=== PATIENT | male | born 1955 | race Caucasian/White ===

== ENCOUNTER 2018-02-06 10:35 | Inpatient (IN) | payer OTHER ==
[~2018-02-06] VITALS: Ht 172.7 cm; Wt 118.4 kg
--- NOTE | 2018-02-06 11:32 | ED GENERAL ADULT ---
History of Present Illness General Chief Complaint: Upper Respiratory Sx/Fever Stated Complaint: URI/BRONCHITIS,SENT BY DR CRAMER Source: patient Exam Limitations: no limitations Allergies Coded Allergies: No Known Allergies (02/06/18) Reconcile Medications Albuterol Sulfate (Proair Hfa) (Unknown Strength) HFA.AER.AD (Unknown Dose) PRN WHEEZING (Reported) Amitriptyline HCl 100 MG TABLET 100 MG PO DAILY CARDIAC (Reported) Aspirin (Aspirin*) 81 MG TAB.CHEW 1 TAB PO DAILY HEART HEALTH (Reported) Atenolol 25 MG TABLET 1 TAB PO DAILY HTN (Reported) Enalapril Maleate 20 MG TABLET 20 MG PO DAILY HTN (Reported) Furosemide 80 MG TABLET 80 MG PO BID FLUID RETENTION (Reported) Nifedipine (Nifedipine ER) 60 MG TAB.ER.24 60 MG PO DAILY HTN (Reported) Olanzapine 10 MG TABLET 10 MG PO QPM PYSCOTIC DISORDER (Reported) Pantoprazole Sodium 20 MG TABLET.DR 20 MG PO DAILY GERD (Reported) Potassium Chloride 20 MEQ TAB.ER.PRT 20 MG PO DAILY REPLACEMENT (Reported) Simvastatin (Simvastatin*) 20 MG TABLET 20 MG PO DAILY CHOL (Reported) Triage Note: 62 Y/O MALE SENT BY DR CRAMER FOR EVAL OF URI SYMPTOMS X APPROX 10 DAYS. PT WENT TO WALK IN CLINIC AND WAS DIAGNOSED WITH BRONCHITIS, FINISHED COURSE OF STEROIDS AND ANTIBIOTICS FRIDAY AND "FELT OK". STATES HE BEGAN TO COUGH AGAIN FRIDAY AND NOW CONTINUES TO HAVE CONGESTION AND COUGH - NON PRODUCTIVE AT TIME; PRODUCTIVE WITH YELLOW PHLEGM AT OTHER TIMES. DENIES FEVERS. DENIES CHANGES IN APPETITE. FLU SWAB SENT. Triage Nurses Notes Reviewed? yes Onset: Gradual Duration: week(s): Timing: constant HPI: 62 y/o male with h/o COPD and prior UT presenting with cough and SOB x2 weeks. Pt was treated for bronchitis with course of antibiotics and prednisone. Symptoms were improving while on the medications, but then began to worsen again once he finished. Cough is sometime non-productive Denies fevers, CP, URI symptoms. was recently sick with similar smyptoms, but has since gotten better. Denies current smoking. (Joe HAHN,Kaley) Vital Signs & Intake/Output Vital Signs & Intake/Output Vital Signs Date Time Temp Pulse Resp B/P B/P Pulse O2 O2 Flow FiO2 Mean Ox Delivery Rate 02/08 1114 140/82 02/08 1113 140/82 02/08 1113 140/82 02/08 0751 95 Room Air 02/08 0701 97.6 77 20 140/82 92 02/07 2242 98.4 89 20 122/62 91 Room Air 02/07 2058 Room Air 02/07 2043 93 Room Air Room Air 02/07 1457 97.6 94 20 126/72 93 Room Air 02/07 1349 Room Air Room Air ED Intake and Output 02/08 0000 02/07 1200 Intake Total 600 Output Total Balance 600 Intake, Oral 600 Patient 263 lb Weight Weight Bed scale Measurement Method (Donna OLSON,Anam Silveira) Past History Travel History Traveled to [place] past 21 day No Medical History Any Pertinent Medical History? see below for history Neurological: NONE EENT: NONE Cardiovascular: myocardial infarction Respiratory: COPD Gastrointestinal: NONE Hepatic: NONE Renal: NONE Musculoskeletal: NONE Psychiatric: NONE Endocrine: NONE Blood Disorders: NONE Cancer(s): NONE TRANSPORT TANK TECHNICIAN/Reproductive: NONE Surgical History Surgical History: non-contributory Psychosocial History What is your primary language Kazakh Tobacco Use: Quit >30 days ago Family History Hx Contributory? No (Kaley Lopez) Review of Systems Review of Systems Constitutional: Reports: no symptoms. EENTM: Reports: no symptoms. Respiratory: Reports: cough, short of breath. Denies: wheezing. Cardiovascular: Reports: no symptoms. GI: Reports: no symptoms. Genitourinary: Reports: no symptoms. Musculoskeletal: Reports: no symptoms. Skin: Reports: no symptoms. Neurological/Psychological: Reports: no symptoms. Hematologic/Endocrine: Reports: no symptoms. Immunologic/Allergic: Reports: no symptoms. (Kaley Lopez) Physical Exam Physical Exam General Appearance: well developed/nourished, no apparent distress, alert, awake , comfortable Head: atraumatic, normal appearance Eyes: Bilateral: normal appearance. Ears, Nose, Throat: normal ENT inspection Neck: supple Respiratory: wheezing (bilateral end expiratory) Cardiovascular: regular rate/rhythm, normal peripheral pulses Gastrointestinal: soft, non-tender Back: normal inspection Extremities: normal inspection Neurologic/Psych: awake, alert, oriented x 3 Skin: intact, normal color, warm/dry Core Measures ACS in differential dx? No CVA/TIA Diagnosis: No Sepsis Present: No Sepsis Focused Exam Completed? No (Kaley Lopez) Progress Differential Diagnoses I considered the following diagnoses in my evaluation of the patient: [COPD exacerbation versus bronchitis versus pneumonia, low concern for ACS] Initial ED EKG: rhythm (sinus), rate (78), trace ST depression in lateral leads are unchanged from prior EKG (Kaley Lopez) Plan of Care: Orders Procedure Date/time Status RT: Evaluation 02/07 1347 Active THERAPIST ORDERS 02/07 UNK Complete Current Medications Sig/Divya Start time Last Medication Dose Stop Time Status Admin Senna/Docusate Sodium 2 TAB DAILY PRN 02/08 1030 AC (Senokot S) Benzonatate 100 MG TID 02/08 1021 AC (Tessalon Capsule) Prednisone 60 MG DAILY 02/08 1000 AC 02/08 1114 Guaifenesin 10 ML Q4-6 PRN PRN 02/08 0200 AC 02/08 (Robitussin) 0204 Atorvastatin Calcium 10 MG 1700 02/07 1700 AC 02/07 (Lipitor) 1625 Albuterol Sulfate 3 ML EVERY 4 HRS/AWAKE 02/07 1600 AC 02/08 (Proventil) 1132 Aspirin 81 MG DAILY 02/07 1000 AC 02/08 (Aspirin) 1114 Atenolol 25 MG DAILY 02/07 1000 AC 02/08 (Tenormin) 1113 Lisinopril 20 MG DAILY 02/07 1000 AC 02/08 (Prinivil) 1113 Nifedipine 60 MG DAILY 02/07 1000 AC 02/08 (Procardia XL) 1114 Omeprazole 20 MG DAILY AC 02/07 0700 AC 02/08 (Prilosec) 0648 Amitriptyline HCl 100 MG AT BEDTIME 02/06 2200 AC 02/07 (Elavil 50 MG Tablet) 2044 Heparin Sodium 5,000 UNIT Q8 02/06 2200 AC 02/08 (Porcine) 0648 Olanzapine 10 MG QPM 02/06 2200 AC 02/07 (Zyprexa) 2044 Acetaminophen 650 MG Q6P PRN 02/06 2130 AC (Tylenol) Albuterol Sulfate 2 PUF Q4 PRN 02/06 2130 AC (Ventolin) EKG shows sinus rhythm with trace ST depressions in the lateral leads which are unchanged from prior EKG, troponin negative, and pt with no CP. CXR shows lung hyperinflation, with no signs of acute infection. Pt's sats fluctuate from 88%-93% on RA after 3 nebs and 125mg solumedrol. Sat's stable in mid 90's while on 2L NC. Given new oxygen requirement will admit for COPD exacerbation. Discussed with Dr. Cramer. (Kaley Lopez) (Donna OLSON,Anam Silveira) Departure Departure Disposition: STILL A PATIENT Condition: Stable Clinical Impression Primary Impression: COPD exacerbation Referrals: Sol OLSON,Johnson Bond (PCP/Family) Departure Forms: Customer Survey General Discharge Information (Kaley Lopez) PA/RECOVERY MANAGER Co-Sign Statement Statement: ED Attending supervision documentation- [X] I saw and evaluated the patient. I have also reviewed all the pertinent lab results and diagnostic results. I agree with the findings and the plan of care as documented in the PA's/RECOVERY MANAGER's documentation. [] I have reviewed the ED Record and agree with the PA's/RECOVERY MANAGER's documentation. [] Additions or exceptions (if any) to the PAs/RECOVERY MANAGER's note and plan are summarized below: [] (Anam Caruso DO) Critical Care Note Critical Care Note Critical Care Time: non-applicable (Kaley Lopez) ED Attending Observation Initial Observation Note: I have seen and personally examined JOHNSON LOVE on 02/08/18 at 0934. I agree with the current emergency department documentation. The disposition (admission or discharge) is uncertain at this time, he needs a period of observation for the following reason(s): The ED Nurse caring for this patient has been personally informed as to what the patient is being observed for. (Kaley Lopez)
--- NOTE | 2018-02-06 12:39 | RADIOLOGY REPORT ---
EXAMINATION: CHEST 2 VIEWS CLINICAL INFORMATION: Cough. Sputum production. COMPARISON: 11/21/2017. TECHNIQUE: PA and lateral views of the chest were obtained. FINDINGS: The cardiac silhouette is not enlarged. The mediastinal and hilar contours are unremarkable. There are neither pleural effusions nor pneumothoraces. There are no consolidations. There is mild scarring at the left lateral lung base, unchanged. The lungs are hyperinflated. The osseous structures are unremarkable. IMPRESSION: No evidence for acute disease. Lung hyperinflation.
[2018-02-06] MEDS ORDERED: PROAIR HFA8.5 GM (13:11)
[2018-02-06] MEDS ORDERED: ENALAPRIL MALEA20 M1 PO (13:12)
[2018-02-06] MEDS ORDERED: ATENOLOL25 M1 PO (13:12)
[2018-02-06 13:13] LABS: ABSOLUTE BASOPHIL COUNT 0.1 /CUMM (0.0-0.2); ABSOLUTE EOSINOPHIL COUNT 0.1 /CUMM (0.0-0.7); ABSOLUTE GRANULOCYTE CT 6.6 /CUMM (1.4-6.5); ABSOLUTE MONOCYTE COUNT 0.7 /CUMM (0.10-0.60); BASOPHIL % 0.6 % (0.0-2.0); EOSINOPHIL % 0.6 % (0-5); GRANULOCYTE % 63.2 % (42.2-75.2); HEMATOCRIT 44.4 % (42-52); MEAN CORPUSCULAR HGB 33.1 PG (27.0-31.0); MEAN CORPUSCULAR HGB CONC 33.4 G/DL (33.0-37.0); PLATELET COUNT 308 /CUMM (130-400); RBC DISTRIBUTION WIDTH 13.3 % (11.5-14.5); RED BLOOD CELL CT 4.49 /CUMM (4.70-6.10); WHITE BLOOD CELL COUNT 10.4 /CUMM (4.8-10.8)
[2018-02-06] MEDS ORDERED: NIFEDIPINE ER60 M2 PO (13:13)
[2018-02-06] MEDS ORDERED: PANTOPRAZOLE SO20 M1 PO (13:14)
[2018-02-06] MEDS ORDERED: FUROSEMIDE80 M1 PO (13:14)
[2018-02-06] MEDS ORDERED: SIMVASTATIN20 M2 PO (13:15)
[2018-02-06] MEDS ORDERED: AMITRIPTYLINE100 M2 PO (13:15)
[2018-02-06] MEDS ORDERED: OLANZAPINE10 M1 PO (13:16)
[2018-02-06] MEDS ORDERED: POTASSIUM CHLO20 ME2 PO (13:16)
[2018-02-06] MEDS ORDERED: ENALAPRIL MALEA10 M1 PO (19:09)
[2018-02-06] MEDS ORDERED: ASPIRIN81 M4 PO (19:11)
--- NOTE | 2018-02-06 20:57 | History & Physical ---
Mali OLSON,[facility] 02/06/182055: General Information and HPI MD Statement: I have seen and personally examined JOHNSON LOVE and documented this H&P. The patient is a 62 year old M who presented with a patient stated chief complaint of [cough for 2 weeks]. Source of Information: patient, family, old records Exam Limitations: no limitations History of Present Illness: Mr. Love a 62 year old male with past medical history of COPD not on home oxygen, [place] 2005 without any stent placement, depression, anxiety who presented to ED with chief complaint of cough for 2 weeks and cough induced syncope. Patient reported cough that started 2 weeks ago didn't respond to outpatient management with Z-Nikunj and prednisone, cough is productive of yellow sputum associated with nasal congestion, chills and maybe low-grade fever. Patient has been having shortness of breath for the last 2-3 months that progressively worsened but didn't require any oxygen so far. Reported having pulmonary test that was ordered by Dr. Adames at somepoint 2-4 weeks ago. He also had Lasix increased to 80 mg twice a day for lower extremity swelling for 2 weeks with minimal improvement. Patient denied any chest pain, palpitation, dizziness, blurry vision, diaphoresis. Yesterday he had a cough spell and lost his balance but didn't loss consciousness, denied any convulsions, urine or stool incontinence. He was alert oriented the whole time and called his for help , able to stood up and articulate appropriately. Patient didn't have any previous hospitalization or surgical operation except appendectomy 2002. Has history of [place] 2005 however didn't have any cardiac cath at that time or stress test. Allergies/Medications Allergies: Coded Allergies: No Known Allergies (02/06/18) Home Med list Albuterol Sulfate (Proair Hfa) (Unknown Strength) HFA.AER.AD (Unknown Dose) PRN WHEEZING (Reported) Amitriptyline HCl 100 MG TABLET 100 MG PO DAILY CARDIAC (Reported) Aspirin (Aspirin*) 81 MG TAB.CHEW 1 TAB PO DAILY HEART HEALTH (Reported) Atenolol 25 MG TABLET 1 TAB PO DAILY HTN (Reported) Enalapril Maleate 20 MG TABLET 20 MG PO DAILY HTN (Reported) Furosemide 80 MG TABLET 80 MG PO BID FLUID RETENTION (Reported) Nifedipine (Nifedipine ER) 60 MG TAB.ER.24 60 MG PO DAILY HTN (Reported) Olanzapine 10 MG TABLET 10 MG PO QPM PYSCOTIC DISORDER (Reported) Pantoprazole Sodium 20 MG TABLET.DR 20 MG PO DAILY GERD (Reported) Potassium Chloride 20 MEQ TAB.ER.PRT 20 MG PO DAILY REPLACEMENT (Reported) Simvastatin (Simvastatin*) 20 MG TABLET 20 MG PO DAILY CHOL (Reported) Past History Travel History Traveled to [place] past 21 day No Medical History Neurological: NONE EENT: NONE Cardiovascular: myocardial infarction Respiratory: COPD Gastrointestinal: NONE Hepatic: NONE Renal: NONE Musculoskeletal: NONE Psychiatric: NONE Endocrine: NONE Blood Disorders: NONE Cancer(s): NONE POSTPARTUM RN/Reproductive: NONE Surgical History Surgical History: non-contributory Review of Systems Review of Systems Constitutional: Reports: see HPI, chills, fever. Denies: malaise, weakness. EENTM: Denies: blurred vision, double vision, nasal pain, throat pain. Cardiovascular: Reports: peripheral edema. Denies: chest pain, orthopena, palpitations. Respiratory: Reports: cough, short of breath, sputum production. Denies: hemoptysis, orthopnea, wheezing. GI: Denies: abdominal pain, constipation, diarrhea, nausea, vomiting. Genitourinary: Denies: dysuria, hematuria. Musculoskeletal: Denies: back pain, joint pain, joint swelling. Skin: Denies: rash. Neurological/Psychological: Denies: ataxia, confusion, numbness, tremors. Hematologic/Endocrine: Denies: bruising. Exam & Diagnostic Data Last 24 Hrs of Vital Signs/I&O Vital Signs Date Time Temp Pulse Resp B/P B/P Pulse O2 O2 Flow FiO2 Mean Ox Delivery Rate 02/07 0641 97.5 93 20 138/80 96 02/06 2237 91 Room Air 02/07 2128 98.3 97 20 162/80 93 Room Air 02/06 2019 97.8 95 18 119/62 94 Nasal 2.0L Cannula 02/06 1817 98.3 73 17 125/75 93 Nasal 2.0L Cannula 02/06 1552 98.4 88 20 105/60 94 02/06 1249 80 20 125/79 89 Room Air 02/06 1203 92 02/06 1046 96.8 76 18 157/89 96 Room Air Intake & Output 02/07 0800 02/07 0000 02/06 1600 Intake Total Output Total Balance Patient 117.991 kg 116.573 kg Weight Weight Bed scale Reported by Patient Measurement Method Physical Exam General Appearance Alert, Oriented X3, Cooperative, No Acute Distress Skin No Rashes Skin Temp/Moisture Exam: Warm/Dry HEENT Atraumatic, PERRLA, EOMI, Mucous Membr. moist/pink Neck Supple, No JVD Lymphatic no cervical lymphadenopathy Cardiovascular Regular Rate, Normal S1, Normal S2, No Murmurs Lungs Decreased air entery bilateral , Crepitation on right lower lung lobe Abdomen Normal Bowel Sounds, Soft, No Tenderness Neurological Normal Speech, Strength at 5/5 X4 Ext, Normal Tone, Sensation Intact, Cranial Nerves 3-12 NL, Reflexes 2+ Extremities No Clubbing, No Cyanosis, Bilateral +1 pitting edema Vascular Normal Pulses, Pulses Symmetrical Last 24 Hrs of Labs/Pete: Laboratory Tests 02/07/18 0605: Sodium Pending, Potassium Pending, Chloride Pending, Carbon Dioxide Pending, Anion Gap Pending, BUN Pending, Creatinine Pending, BUN/Creatinine Ratio Pending , CBC w Diff Pending, WBC Pending, RBC Pending, Hgb Pending, Hct Pending, MCV Pending, MCH Pending, MCHC Pending, RDW Pending, Plt Count Pending, MPV Pending 02/06/18 1500: Troponin I Cancelled 02/06/18 1300: Anion Gap 15, Estimated GFR 56 L, BUN/Creatinine Ratio 16.2, Glucose 94, Calcium 9.1, Troponin I < 0.01, Nwj-L-Hszwfptyyah Pept 64.8, CBC w Diff NO MAN DIFF REQ, RBC 4.49 L, MCV 99.0 H, MCH 33.1 H, MCHC 33.4, RDW 13.3, MPV 7.0 L , Gran % 63.2, Lymphocytes % 28.8, Monocytes % 6.8, Eosinophils % 0.6, Basophils % 0.6, Absolute Granulocytes 6.6 H, Absolute Lymphocytes 3.0, Absolute Monocytes 0.7 H, Absolute Eosinophils 0.1, Absolute Basophils 0.1 Microbiology 02/06 1048 NASOPHARYN: Influenza Virus A & B Rapid Smear - COMP Diagnostic Data CXR Results FINDINGS: The cardiac silhouette is not enlarged. The mediastinal and hilar contours are unremarkable. There are neither pleural effusions nor pneumothoraces. There are no consolidations. There is mild scarring at the left lateral lung base, unchanged. The lungs are hyperinflated. The osseous structures are unremarkable. IMPRESSION: No evidence for acute disease. Lung hyperinflation. Assessment/Plan Assessment: Mr. Love a 62 year old male with past medical history of COPD not on home oxygen, [place] 2005 without any stent placement, depression, anxiety who presented to ED with chief complaint of cough for 2 weeks and cough induced syncope. Problem list #COPD exacerbation versus community-acquired pneumonia #Acute kidney injury #Persistent lower extremity swelling Plan -Admit to telemetry floor -Vitals every shift -Ins and outs and daily weight -ProBNP was obtained that is negative for CHF -Will hold Lasix for elevated creatinine 1.3 baseline 1 -Repeat CBC and BMP in a.m. -TRC -Solu-Medrol 40 twice a day -Will hold antibiotics for now and reevaluate in a.m. for starting azithromycin versus ceftriaxone and azithromycin discussed with Dr. Horton -Leg elevation -Consider vascular evaluation for persistent lower extremity swelling used to be left more than right, patient had Doppler ultrasound dated 08/2017 that was negative for DVT -Sputum culture -Continue home medication except for Lasix -DVT prophylaxis heparin subcutaneous -Code full -Diet heart healthy As Ranked By This Provider Problem List: 1. COPD exacerbation 2. Leg swelling Core Measures/Misc (08/10) Acute Coronary Syndrome ACS Diagnosis: No Congestive Heart Failure Congestive Heart Failure Diagnosis No Cerebrovascular Accident CVA/TIA Diagnosis: No VTE (View Protocol) VTE Risk Factors Age>40 No Mechanical VTE Prophylaxis d/t N/A MechProphylax Ordered No VTE Pharm Prophylaxis d/t NA PharmProphylax ordered Sepsis (View protocol) Sepsis Present: No Johnson Horton MD 02/07/18 1357: Attending MD Review Statement Attending Statement Attending MD Statement: examined this patient, discuss w/resident/PA/SVP CHIEF MARKETING OFFICER, agreed w/resident/PA/SVP CHIEF MARKETING OFFICER, discussed with family, reviewed EMR data (avail), reviewed images, amended to note Attending Assessment/Plan: Mr. Love was seen in the office prior to referral to the ED. He was revisited in the ED. Problems: -AECOPD with hypoxemia -acute bronchitis -? cough syncope -CAD -LE edema -MARCIAL -HTN -dyslipidemia -impaired fasting glucose -major depression partial remission Plan: -admit telemetry -cultures -TRC nebs IV steroids O2 -follow glucose SSI prn -follow renal function rehydration prn -hold furosemide -continue other maintenace meds -leg elevation -Cardiology Consultation
[2018-02-06 21:28] VITALS: BP 162/80
[2018-02-07 06:41] VITALS: BP 138/80
--- NOTE | 2018-02-07 08:37 | PN- Housestaff ---
See Addendum Subjective Follow-up For: #COPD exacerbation versus community-acquired pneumonia #Acute kidney injury #Persistent lower extremity swelling Subjective: No overnight event. Patient was breathing under RA. No CP/dizziness/SOB overnight. No other specific complaint. Review of Systems Constitutional: Reports: see HPI. Objective Last 24 Hrs of Vital Signs/I&O Vital Signs Date Time Temp Pulse Resp B/P B/P Pulse O2 O2 Flow FiO2 Mean Ox Delivery Rate 02/07 0817 93 138/80 02/07 0817 93 138/80 02/07 0817 93 138/80 02/07 0641 97.5 93 20 138/80 96 02/06 2237 91 Room Air 02/06 2128 98.3 97 20 162/80 93 Room Air 02/06 2019 97.8 95 18 119/62 94 Nasal 2.0L Cannula 02/06 1817 98.3 73 17 125/75 93 Nasal 2.0L Cannula 02/06 1552 98.4 88 20 105/60 94 02/06 1249 80 20 125/79 89 Room Air 02/06 1203 92 02/06 1046 96.8 76 18 157/89 96 Room Air Intake & Output 02/07 1600 02/07 0800 02/07 0000 Intake Total Output Total Balance Patient 117.991 kg Weight Weight Bed scale Measurement Method Physical Exam General Appearance: Alert, Oriented X3, Cooperative, No Acute Distress Cardiovascular: Regular Rate Lungs: Normal Air Movement, R lung base some faint expiratory wheezing Abdomen: Normal Bowel Sounds, Soft, No Tenderness Neurological: Normal Speech Extremities: No Cyanosis, No Edema, Normal Pulses Current Medications: Current Medications Sig/Divya Start time Last Medication Dose Route Stop Time Status Admin Acetaminophen 650 MG Q6P PRN 02/06 2130 AC PO Albuterol Sulfate 2 PUF Q4 PRN 02/06 2130 AC INH Albuterol Sulfate 3 ML ONCE ONE 02/06 1145 DC 02/06 INH 02/06 1146 1202 Albuterol Sulfate 3 ML ONCE ONE 02/06 1145 DC 02/06 INH 02/06 1146 1202 Albuterol Sulfate 3 ML ONCE ONE 02/06 1145 DC 02/06 INH 02/06 1146 1202 Amitriptyline HCl 100 MG AT BEDTIME 02/06 2200 AC 02/07 PO 0011 Aspirin 81 MG DAILY 02/07 1000 AC 02/07 PO 0816 Atenolol 25 MG DAILY 02/07 1000 AC 02/07 PO 0817 Atorvastatin Calcium 10 MG 1700 02/07 1700 AC PO Doxycycline Hyclate 0 .STK-MED ONE 02/06 1817 DC PO Doxycycline Hyclate 100 MG ONCE ONE 02/06 1700 DC 02/06 PO 02/06 1701 1800 Heparin Sodium 5,000 UNIT Q8 02/06 2200 AC 02/07 (Porcine) SC 0630 Ipratropium Aylett 2.5 ML ONCE ONE 02/06 1145 DC 02/06 INH 02/06 1146 1202 Lisinopril 20 MG DAILY 02/07 1000 AC 02/07 PO 0817 Methylprednisolone 40 MG Q12 02/06 2200 AC 02/07 IV 0816 Methylprednisolone 0 .STK-MED ONE 02/06 1311 DC .ROUTE Methylprednisolone 125 MG ONCE ONE 02/06 1300 DC 02/06 IV 02/06 1301 1310 Nifedipine 60 MG DAILY 02/07 1000 AC 02/07 PO 0817 Olanzapine 10 MG QPM 02/06 2200 AC 02/07 PO 0011 Omeprazole 20 MG DAILY AC 02/07 0700 AC 02/07 PO 0630 Last 24 Hrs of Lab/Pete Results Last 24 Hrs of Labs/Mics: Laboratory Tests 02/07/18 0605: Sodium Pending, Potassium Pending, Chloride Pending, Carbon Dioxide Pending, Anion Gap Pending, BUN Pending, Creatinine Pending, BUN/Creatinine Ratio Pending , CBC w Diff Pending, WBC Pending, RBC Pending, Hgb Pending, Hct Pending, MCV Pending, MCH Pending, MCHC Pending, RDW Pending, Plt Count Pending, MPV Pending 02/06/18 1500: Troponin I Cancelled 02/06/18 1300: Anion Gap 15, Estimated GFR 56 L, BUN/Creatinine Ratio 16.2, Glucose 94, Calcium 9.1, Troponin I < 0.01, Flb-B-Fjitmwyluvt Pept 64.8, CBC w Diff NO MAN DIFF REQ, RBC 4.49 L, MCV 99.0 H, MCH 33.1 H, MCHC 33.4, RDW 13.3, MPV 7.0 L , Gran % 63.2, Lymphocytes % 28.8, Monocytes % 6.8, Eosinophils % 0.6, Basophils % 0.6, Absolute Granulocytes 6.6 H, Absolute Lymphocytes 3.0, Absolute Monocytes 0.7 H, Absolute Eosinophils 0.1, Absolute Basophils 0.1 Microbiology 02/06 1048 NASOPHARYN: Influenza Virus A & B Rapid Smear - COMP Assessment/Plan Assessment: Mr. Menjivar a 62 year old male with past medical history of COPD not on home oxygen, [place] 2005 without any stent placement, depression, anxiety who presented to ED with chief complaint of cough for 2 weeks and cough induced syncope. Problem list #COPD exacerbation versus community-acquired pneumonia #Acute kidney injury, resolved. #Persistent lower extremity swelling Plan -Ins and outs and daily weight -ProBNP was obtained that is negative for CHF -Cr improved from 1.3 to 1.1 on latest lab. will continue monitor. -TRC -Solu-Medrol 40 twice a day, and he received IV 40mg solumedrol this morning. Pending switching to PO prednisone tomorrow AM. -Will hold antibiotics for now and reevaluate in a.m. for starting azithromycin versus ceftriaxone and azithromycin discussed with Dr. Horton -Leg elevation -Consider vascular evaluation for persistent lower extremity swelling used to be left more than right, patient had Doppler ultrasound dated 08/2017 that was negative for DVT -Sputum culture -Continue home medication except for Lasix -DVT prophylaxis heparin subcutaneous -Code full -Diet heart healthy Problem List: 1. COPD exacerbation 2. MARCIAL (acute kidney injury) Pain Ratin Pain Location: NA Pain Goal: Remain pain free Pain Plan: see AP Tomorrow's Labs & Rationales: NA
[2018-02-07 09:28] LABS: ABSOLUTE BASOPHIL COUNT 0 /CUMM (0.0-0.2); ABSOLUTE EOSINOPHIL COUNT 0 /CUMM (0.0-0.7); ABSOLUTE GRANULOCYTE CT 9.4 /CUMM (1.4-6.5); ABSOLUTE LYMPH COUNT 1.1 /CUMM (1.2-3.4); ABSOLUTE MONOCYTE COUNT 0.2 /CUMM (0.10-0.60); BASOPHIL % 0 % (0.0-2.0); EOSINOPHIL % 0 % (0-5); HEMATOCRIT 41.4 % (42-52); MEAN CORPUSCULAR HGB 33.3 PG (27.0-31.0); MEAN CORPUSCULAR HGB CONC 33.7 G/DL (33.0-37.0); MEAN CORPUSCULAR VOLUME 98.7 FL (80.0-94.0); MEAN PLATELET VOLUME 7.5 FL (7.4-10.4); PLATELET COUNT 300 /CUMM (130-400); RBC DISTRIBUTION WIDTH 13.4 % (11.5-14.5); RED BLOOD CELL CT 4.19 /CUMM (4.70-6.10); WHITE BLOOD CELL COUNT 10.7 /CUMM (4.8-10.8)
--- NOTE | 2018-02-07 13:39 | Admission Certification ---
Admission Certification Certification Statement - As attending physician, I certify that at the time of - admission, based on clinical presentation, severity of - symptoms, need for further diagnostic testing and - therapeutic interventions, and risk of adverse outcomes - without in-hospital treatment, in my clinical assessment, - this patient requires an acute hospital stay for a minimum - of two nights or longer. I have also considered psychsocial - factors such as support system, advanced age, financial - issues, cognitive issues, and failed out-patient treatments, - past re-admission history, safety of patient, and lack of - compliance as applicable. Specific rationale supporting this admission is: Acute exacerbation of COPD with hypoxemia
[2018-02-07 14:57] VITALS: BP 126/72
--- NOTE | 2018-02-07 16:44 | PN- Att Addend ---
Attending Addendum Attending Brief Note Covering attending note. Patient looking and feeling much better, breathing better had no syncopal episodes since in the hospital, monitor showed no arrhythmias Vital signs are stable no fever , oxygen saturations adequate, better air entry. Less edema Overall improved , will start tapering down steroids, continue observation. 24 TOTALS 02/07 0000 02/06 0000 Intake Total Output Total Balance Patient 260 lb Weight Weight Bed scale Measurement Method Current Medications Sig/Divya Start time Last Medication Dose Route Stop Time Status Admin Acetaminophen 650 MG Q6P PRN 02/06 2130 AC PO Albuterol Sulfate 3 ML EVERY 4 HRS/AWAKE 02/07 1600 AC 02/07 INH 1349 Albuterol Sulfate 2 PUF Q4 PRN 02/06 2130 AC INH Amitriptyline HCl 100 MG AT BEDTIME 02/06 2200 AC 02/07 PO 0011 Aspirin 81 MG DAILY 02/07 1000 AC 02/07 PO 0816 Atenolol 25 MG DAILY 02/07 1000 AC 02/07 PO 0817 Atorvastatin Calcium 10 MG 1700 02/07 1700 AC 02/07 PO 1625 Doxycycline Hyclate 0 .STK-MED ONE 02/06 1817 DC PO Doxycycline Hyclate 100 MG ONCE ONE 02/06 1700 DC 02/06 PO 02/06 1701 1800 Heparin Sodium 5,000 UNIT Q8 02/06 2200 AC 02/07 (Porcine) SC 1437 Lisinopril 20 MG DAILY 02/07 1000 AC 02/07 PO 0817 Methylprednisolone 40 MG Q12 02/06 2200 DC 02/07 IV 0816 Nifedipine 60 MG DAILY 02/07 1000 AC 02/07 PO 0817 Olanzapine 10 MG QPM 02/06 2200 AC 02/07 PO 0011 Omeprazole 20 MG DAILY AC 02/07 0700 AC 02/07 PO 0630 Prednisone 60 MG DAILY 02/08 1000 AC PO Laboratory Tests 02/07/18 0605: Anion Gap 14, Estimated GFR > 60, BUN/Creatinine Ratio 20.9, CBC w Diff NO MAN DIFF REQ, RBC 4.19 L, MCV 98.7 H, MCH 33.3 H, MCHC 33.7, RDW 13.4, MPV 7.5, Gran % 88.0 H, Lymphocytes % 10.0 L, Monocytes % 2.0, Eosinophils % 0, Basophils % 0, Absolute Granulocytes 9.4 H, Absolute Lymphocytes 1.1 L, Absolute Monocytes 0.2, Absolute Eosinophils 0, Absolute Basophils 0 02/06/18 1500: Troponin I Cancelled 02/06/18 1300: Anion Gap 15, Estimated GFR 56 L, BUN/Creatinine Ratio 16.2, Glucose 94, Calcium 9.1, Troponin I < 0.01, Zdi-[id number]-Iqcuxqdbjqy Pept 64.8, CBC w Diff NO MAN DIFF REQ, RBC 4.49 L, MCV 99.0 H, MCH 33.1 H, MCHC 33.4, RDW 13.3, MPV 7.0 L , Gran % 63.2, Lymphocytes % 28.8, Monocytes % 6.8, Eosinophils % 0.6, Basophils % 0.6, Absolute Granulocytes 6.6 H, Absolute Lymphocytes 3.0, Absolute Monocytes 0.7 H, Absolute Eosinophils 0.1, Absolute Basophils 0.1 Microbiology 02/06 1048 NASOPHARYN: Influenza Virus A & B Rapid Smear - COMP Vital Signs Date Time Temp Pulse Resp B/P B/P Pulse O2 O2 Flow FiO2 Mean Ox Delivery Rate 02/07 1457 97.6 94 20 126/72 93 Room Air 02/07 1349 Room Air Room Air 02/07 0817 93 138/80 02/07 0817 93 138/80 02/07 0817 93 138/80 02/07 0800 Room Air 02/07 0641 97.5 93 20 138/80 96 02/06 2237 91 Room Air 02/06 2128 98.3 97 20 162/80 93 Room Air 02/06 2019 97.8 95 18 119/62 94 Nasal 2.0L Cannula 02/06 1817 98.3 73 17 125/75 93 Nasal 2.0L Cannula
[2018-02-07 22:42] VITALS: BP 122/62
[2018-02-08 07:01] VITALS: BP 140/82
--- NOTE | 2018-02-08 08:55 | PN- Housestaff ---
Subjective Follow-up For: #COPD exacerbation versus community-acquired pneumonia #Acute kidney injury #Persistent lower extremity swelling Subjective: Patient was seen and examined at bedside, no overnight events, still complaining of productive cough with yellowish sputum, and constipation, currently saturating well on room air, prednisone taper which started today Review of Systems Constitutional: Reports: see HPI. Objective Last 24 Hrs of Vital Signs/I&O Vital Signs Date Time Temp Pulse Resp B/P B/P Pulse O2 O2 Flow FiO2 Mean Ox Delivery Rate 02/08 0751 95 Room Air 02/08 0701 97.6 77 20 140/82 92 02/07 2242 98.4 89 20 122/62 91 Room Air 02/07 2058 Room Air 02/07 2043 93 Room Air Room Air 02/07 1457 97.6 94 20 126/72 93 Room Air 02/07 1349 Room Air Room Air Intake & Output 02/08 1600 02/08 0800 02/08 0000 Intake Total Output Total Balance Patient 263 lb Weight Weight Bed scale Measurement Method Physical Exam General Appearance: Alert, Oriented X3, Cooperative, No Acute Distress HEENT: Atraumatic, PERRLA, EOMI, Mucous Membr. moist/pink Neck: Supple, No JVD Cardiovascular: Normal S1, Normal S2, No Murmurs Lungs: BILATERAL WHEEZES AND RALES Abdomen: Normal Bowel Sounds, Soft, No Tenderness Neurological: Normal Speech, Strength at 5/5 X4 Ext, Normal Tone, Sensation Intact Extremities: No Clubbing, No Cyanosis, BILATERAL 2 + PITTING EDEMA Vascular: Normal Pulses Assessment/Plan Assessment: Mr. Menjivar a 62 year old male with past medical history of COPD not on home oxygen, [place] 2005 without any stent placement, depression, anxiety who presented to ED with chief complaint of cough for 2 weeks and cough induced syncope. Problem list #COPD exacerbation versus community-acquired pneumonia #Acute kidney injury, resolved. #Persistent lower extremity swelling Plan Continue to monitor on telemetry -Ins and outs and daily weight -ProBNP was obtained that is negative for CHF -Cr improved from 1.3 to 1.1 on latest lab. will continue monitor. -TRC -Prednisone 60 mg p.o. daily, to be followed by prednisone taper -Tessalon Perls 100 mg twice daily -Since kidney function improved, will consider restarting home dose of Lasix -Will hold antibiotics for now and reevaluate in a.m. for starting azithromycin versus ceftriaxone and azithromycin discussed with Dr. Horton -Leg elevation -Consider vascular evaluation for persistent lower extremity swelling used to be left more than right, patient had Doppler ultrasound dated 08/2017 that was negative for DVT -Sputum culture -Continue home medication except for Lasix -DVT prophylaxis heparin subcutaneous -Code full -Diet heart healthy Problem List: 1. COPD exacerbation 2. Leg swelling 3. MARCIAL (acute kidney injury) Pain Ratin Pain Location: N/A Pain Goal: Remain pain free Pain Plan: PATHWAY Tomorrow's Labs & Rationales: CBC BEP
[2018-02-08 14:00] VITALS: BP 142/80
--- NOTE | 2018-02-08 14:48 | PN- Att Addend ---
Attending Addendum Attending Brief Note Patient sitting in the chair is feeling and looking much better, breathing much better. Even able to move around the room with no problems. Vital signs are stable no fever. Better air entry on lung auscultation. No other major changes appreciate cardiology's input and recommendations. Continue observation today continue tapering steroids is stable in a.m. may be able to start disposition plans. Intake & Output 02/08 1600 02/08 0400 02/07 0400 02/06 1600 02/06 0400 Intake Total 600 Output Total Balance 600 Intake, Oral 600 Patient 263 lb 260 lb 257 lb Weight Weight Bed scale Bed scale Reported by Patient Measurement Method Laboratory Tests 02/07/18 0605: Anion Gap 14, Estimated GFR > 60, BUN/Creatinine Ratio 20.9, CBC w Diff NO MAN DIFF REQ, RBC 4.19 L, MCV 98.7 H, MCH 33.3 H, MCHC 33.7, RDW 13.4, MPV 7.5, Gran % 88.0 H, Lymphocytes % 10.0 L, Monocytes % 2.0, Eosinophils % 0, Basophils % 0, Absolute Granulocytes 9.4 H, Absolute Lymphocytes 1.1 L, Absolute Monocytes 0.2, Absolute Eosinophils 0, Absolute Basophils 0 02/06/18 1500: Troponin I Cancelled 02/06/18 1300: Anion Gap 15, Estimated GFR 56 L, BUN/Creatinine Ratio 16.2, Glucose 94, Calcium 9.1, Troponin I < 0.01, Pfj-K-Pfemeuhmkkc Pept 64.8, CBC w Diff NO MAN DIFF REQ, RBC 4.49 L, MCV 99.0 H, MCH 33.1 H, MCHC 33.4, RDW 13.3, MPV 7.0 L , Gran % 63.2, Lymphocytes % 28.8, Monocytes % 6.8, Eosinophils % 0.6, Basophils % 0.6, Absolute Granulocytes 6.6 H, Absolute Lymphocytes 3.0, Absolute Monocytes 0.7 H, Absolute Eosinophils 0.1, Absolute Basophils 0.1 Microbiology 02/06 1048 NASOPHARYN: Influenza Virus A & B Rapid Smear - COMP Microbiology 02/06 1048 NASOPHARYN: Influenza Virus A & B Rapid Smear - COMP Vital Signs Date Time Temp Pulse Resp B/P B/P Pulse O2 O2 Flow FiO2 Mean Ox Delivery Rate 02/08 1114 140/82 02/08 1113 140/82 02/08 1113 140/82 02/08 0751 95 Room Air 02/08 0701 97.6 77 20 140/82 92 02/07 2242 98.4 89 20 122/62 91 Room Air 02/07 2058 Room Air 02/07 2043 93 Room Air Room Air 02/07 1457 97.6 94 20 126/72 93 Room Air
--- NOTE | 2018-02-08 15:08 | Cons- Cardiology ---
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 The patient's past history is marked therefore COPD, reported myocardial infarction in 2005 with no interventions at that time, etc. The patient now presents to the emergency room with chief complaint of 2 weeks of coughing and one episode of cough induced presyncope/syncope. The patient's cough started about 2 weeks ago. He was managed with outpatient antibiotics and prednisone. I'll ultimately, due to persistent symptoms, the patient came to the emergency room. The patient also reports having had recent pulmonary function tests and recently having his Lasix dose increased to 80 twice a day for lower extremity edema. He denies any other cardiovascular symptoms. On the day prior to admission, the patient had an extended coughing spell, lost his balance and felt lightheaded and dizzy but reports not losing consciousness. There is no evidence of any other issues, cardiac or neurologic symptoms at that time. Allergies/Medications Allergies: Coded Allergies: No Known Allergies (02/06/18) Home Med List: Albuterol Sulfate (Proair Hfa) (Unknown Strength) HFA.AER.AD (Unknown Dose) PRN WHEEZING (Reported) Amitriptyline HCl 100 MG TABLET 100 MG PO DAILY CARDIAC (Reported) Aspirin (Aspirin*) 81 MG TAB.CHEW 1 TAB PO DAILY HEART HEALTH (Reported) Atenolol 25 MG TABLET 1 TAB PO DAILY HTN (Reported) Enalapril Maleate 20 MG TABLET 20 MG PO DAILY HTN (Reported) Furosemide 80 MG TABLET 80 MG PO BID FLUID RETENTION (Reported) Nifedipine (Nifedipine ER) 60 MG TAB.ER.24 60 MG PO DAILY HTN (Reported) Olanzapine 10 MG TABLET 10 MG PO QPM PYSCOTIC DISORDER (Reported) Pantoprazole Sodium 20 MG TABLET.DR 20 MG PO DAILY GERD (Reported) Potassium Chloride 20 MEQ TAB.ER.PRT 20 MG PO DAILY REPLACEMENT (Reported) Simvastatin (Simvastatin*) 20 MG TABLET 20 MG PO DAILY CHOL (Reported) Current Medications: Current Medications Sig/Divya Start time Last Medication Dose Route Stop Time Status Admin Acetaminophen 650 MG Q6P PRN 02/06 2130 AC PO Albuterol Sulfate 3 ML EVERY 4 HRS/AWAKE 02/07 1600 AC 02/08 INH 1132 Albuterol Sulfate 2 PUF Q4 PRN 02/06 2130 AC INH Amitriptyline HCl 100 MG AT BEDTIME 02/06 2200 AC 02/07 PO 2044 Aspirin 81 MG DAILY 02/07 1000 AC 02/08 PO 1114 Atenolol 25 MG DAILY 02/07 1000 AC 02/08 PO 1113 Atorvastatin Calcium 10 MG 1700 02/07 1700 AC 02/07 PO 1625 Benzonatate 100 MG TID 02/08 1021 AC PO Guaifenesin 10 ML Q4-6 PRN PRN 02/08 0200 AC 02/08 PO 0204 Heparin Sodium 5,000 UNIT Q8 02/06 2200 AC 02/08 (Porcine) SC 0648 Lisinopril 20 MG DAILY 02/07 1000 AC 02/08 PO 1113 Nifedipine 60 MG DAILY 02/07 1000 AC 02/08 PO 1114 Olanzapine 10 MG QPM 02/06 2200 AC 02/07 PO 2044 Omeprazole 20 MG DAILY AC 02/07 0700 AC 02/08 PO 0648 Prednisone 60 MG DAILY 02/08 1000 AC 02/08 PO 1114 Senna/Docusate Sodium 2 TAB DAILY PRN 02/08 1030 AC PO Past History Travel History Traveled to [place] past 21 day No Medical History Blood Transfusion Hx: No Neurological: NONE EENT: NONE Cardiovascular: myocardial infarction Respiratory: COPD Gastrointestinal: NONE Hepatic: NONE Renal: NONE Musculoskeletal: NONE Psychiatric: NONE Endocrine: NONE Blood Disorders: NONE Cancer(s): NONE PIPE INSPECTOR/Reproductive: NONE Surgical History Surgical History: appendectomy Psychosocial History Where Do You Live? Home Smoking Status: Former Smoker Exam & Diagnostic Data Vital Signs and I&O Vital Signs Date Time Temp Pulse Resp B/P B/P Pulse O2 O2 Flow FiO2 Mean Ox Delivery Rate 02/08 1114 140/82 02/08 1113 140/82 02/08 1113 140/82 02/08 0751 95 Room Air 02/08 0701 97.6 77 20 140/82 92 02/07 2242 98.4 89 20 122/62 91 Room Air 02/07 205 Room Air 02/07 2043 93 Room Air Room Air Intake & Output 02/08 1600 02/08 0800 02/08 0000 03/17 1600 02/07 0800 02/07 0000 Intake Total 600 Output Total Balance 600 Intake, Oral 600 Patient 263 lb 260 lb Weight Weight Bed scale Bed scale Measurement Method Physical Exam: General Appearance Alert, Oriented X3, Cooperative, No Acute Distress Skin normal HEENT Atraumatic, PERRLA, EOMI, Mucous Membr. moist/pink Neck Supple, No JVD, carotid upstroke is normal bilaterally. No bruits heard. Lymphatic normal Cardiovascular Regular Rate, Normal S1, Normal S2, distant heart sounds, 1/6 systolic murmur Lungs bilateral rhonchi with decreased air entry and scattered expiratory wheezing Abdomen Normal Bowel Sounds, Soft, No Tenderness Neurological Normal/nonfocal Extremities No Clubbing, No Cyanosis, 1-2+ bilateral pitting edema, greater on the right side Vascular Normal Pulses, Pulses Symmetrical Labs/Pete Results: Laboratory Tests 02/07 0605 Chemistry Sodium (137 - 145 mmol/L) 143 Potassium (3.5 - 5.1 mmol/L) 4.3 Chloride (98 - 107 mmol/L) 102 Carbon Dioxide (22 - 30 mmol/L) 27 Anion Gap (5 - 16) 14 BUN (9 - 20 mg/dL) 23 H Creatinine (0.7 - 1.2 mg/dL) 1.1 Estimated GFR (>60 ml/min) > 60 BUN/Creatinine Ratio (7 - 25 %) 20.9 Hematology CBC w Diff NO MAN DIFF REQ WBC (4.8 - 10.8 /CUMM) 10.7 RBC (4.70 - 6.10 /CUMM) 4.19 L Hgb (14.0 - 18.0 G/DL) 13.9 L Hct (42 - 52 %) 41.4 L MCV (80.0 - 94.0 FL) 98.7 H MCH (27.0 - 31.0 PG) 33.3 H MCHC (33.0 - 37.0 G/DL) 33.7 RDW (11.5 - 14.5 %) 13.4 Plt Count (130 - 400 /CUMM) 300 MPV (7.4 - 10.4 FL) 7.5 Gran % (42.2 - 75.2 %) 88.0 H Lymphocytes % (20.5 - 51.1 %) 10.0 L Monocytes % (1.7 - 9.3 %) 2.0 Eosinophils % (0 - 5 %) 0 Basophils % (0.0 - 2.0 %) 0 Absolute Granulocytes (1.4 - 6.5 /CUMM) 9.4 H Absolute Lymphocytes (1.2 - 3.4 /CUMM) 1.1 L Absolute Monocytes (0.10 - 0.60 /CUMM) 0.2 Absolute Eosinophils (0.0 - 0.7 /CUMM) 0 Absolute Basophils (0.0 - 0.2 /CUMM) 0 Assessment/Plan Assessment/Plan Assessment: 1. Increased shortness of breath likely related to COPD exacerbation/bronchitis 2. Cough induced presyncope 3. Acute renal insufficiency 4. Lower extremity edema likely related to venous insufficiency 5. Reported history of prior myocardial infarction Recommendations: -Continue aggressive respiratory treatment -Continue as per the medical team -Repeat echocardiogram to reassess cardiac anatomy and function -Continue diuresis for lower extremity edema. Also continue conservative measures such as elevation, sodium restriction, etc. Consider support stockings predischarge. Consult Acknowledgment - Thank you for your consult request.
[2018-02-08 22:43] VITALS: BP 138/82
[2018-02-09 06:25] VITALS: BP 130/68
--- NOTE | 2018-02-09 06:58 | PN- Housestaff ---
Bernard OLSON,[facility] 02/09/18 0658: Subjective Follow-up For: #COPD #MARCIAL #persistent LE edema Tele-Events Since Last Visit: SR/ST HR 75-105 QRS .08 [place] .16-.18 Subjective: No acute events overnight. Still complaining of coughing with yellow sputum which is normal for him. SOB is improved. States swelling has improved and is at baseline. Review of Systems Constitutional: Reports: no symptoms. Cardiovascular: Reports: peripheral edema. Respiratory: Reports: cough. Objective Last 24 Hrs of Vital Signs/I&O Vital Signs Date Time Temp Pulse Resp B/P B/P Pulse O2 O2 Flow FiO2 Mean Ox Delivery Rate 02/09 1120 130/68 02/09 1120 130/68 02/09 1120 130/68 02/09 0840 94 Room Air 02/09 0625 97.7 77 20 130/68 91 02/08 2243 97.8 98 22 138/82 94 Room Air 02/08 2023 Room Air 02/08 1617 95 Room Air Intake & Output 02/09 1600 02/09 0800 02/09 0000 Intake Total Output Total Balance Patient 263 lb Weight Physical Exam General Appearance: Alert, Oriented X3, Cooperative, No Acute Distress Cardiovascular: Regular Rate, Normal S1, Normal S2 Lungs: prolonged expiration with diffuse wheezing Abdomen: Normal Bowel Sounds, Soft, No Tenderness Extremities: 3+ right lower extremity edema and 2+ left lower extremity edema Vascular: 2+ radial pulses Current Medications: Current Medications Sig/Divya Start time Last Medication Dose Route Stop Time Status Admin Acetaminophen 650 MG Q6P PRN 02/06 2130 AC PO Albuterol Sulfate 3 ML EVERY 4 HRS/AWAKE 02/07 1600 AC 02/09 INH 1306 Albuterol Sulfate 2 PUF Q4 PRN 02/06 2130 AC INH Amitriptyline HCl 100 MG AT BEDTIME 02/06 2200 AC 02/08 PO 202 Aspirin 81 MG DAILY 02/07 1000 AC 02/09 PO 1120 Atenolol 25 MG DAILY 02/07 1000 AC 02/09 PO 1120 Atorvastatin Calcium 10 MG 1700 02/07 1700 AC 02/08 PO 1540 Benzonatate 100 MG TID 02/08 1021 AC 02/09 PO 1120 Furosemide 80 MG 7:30 AM, & 4:30 PM 02/08 1630 AC 02/09 PO 1120 Guaifenesin 10 ML Q4-6 PRN PRN 02/08 0200 AC 02/08 PO 0204 Heparin Sodium 5,000 UNIT Q8 02/06 2200 AC 02/09 (Porcine) SC 1419 Lisinopril 20 MG DAILY 02/07 1000 AC 02/09 PO 1120 Nifedipine 60 MG DAILY 02/07 1000 AC 02/09 PO 1120 Olanzapine 10 MG QPM 02/06 2200 AC 02/08 PO 2021 Omeprazole 20 MG DAILY AC 02/07 0700 AC 02/09 PO 0600 Prednisone 60 MG DAILY 02/08 1000 AC 02/09 PO 1120 Senna/Docusate Sodium 2 TAB DAILY PRN 02/08 1030 AC PO Last 24 Hrs of Lab/Pete Results Last 24 Hrs of Labs/Mics: Laboratory Tests 02/09/18613: Anion Gap 11, Estimated GFR > 60, BUN/Creatinine Ratio 17.5, CBC w Diff NO MAN DIFF REQ, RBC 4.14 L, MCV 99.0 H, MCH 33.0 H, MCHC 33.4, RDW 13.2, MPV 7.6, Gran % 67.2, Lymphocytes % 26.4, Monocytes % 5.8, Eosinophils % 0.3, Basophils % 0.3, Absolute Granulocytes 6.7 H, Absolute Lymphocytes 2.6, Absolute Monocytes 0.6, Absolute Eosinophils 0, Absolute Basophils 0 Assessment/Plan Assessment: 62 year old male with past medical history of COPD not on home oxygen, [place] 2005 without any stent placement, depression, anxiety who presented to ED with chief complaint of cough for 2 weeks and cough induced syncope currently patient treated for COPD and persistent lower extremity swelling. #SOB BNP 64.8 Shortness of breath most likely COPD Chest x-ray: No acute disease, one hyperinflation Currently room air -Continue TRC, nebs -Continue prednisone, Robitussin, Tessalon Perles, #LE swelling Consider vascular evaluation for persistent lower extremity swelling used to be left more than right, patient had Doppler ultrasound dated 08/2017 that was negative for DVT -Continue Lasix -Monitor renal function while on Lasix -Follow cardiology recommendations - f/u echo #hx of [place] -cont Atorvastatin, aspirin, atenolol #htn -Nifedipine, Lisinopril, #gerd -Omeprazole #mental health -Olanzapine, amitriptyline #DVT prophylaxis #FULL CODE Problem List: 1. Leg swelling 2. COPD exacerbation Pain Ratin Pain Location: none Pain Goal: Pain 4 or less Pain Plan: pain pathway Tomorrow's Labs & Rationales: cbc Yoni Strickland MD 02/09/18 7337: Attending MD Review Statement Attending Statement Attending MD Statement: examined this patient, agreed w/resident/PA/MARKING DEVICES ASSEMBLER, amended to note Attending Assessment/Plan: Mr. Marcum was interviewed and examined earlier this morning and again this evening. His EMR was reviewed. He has no cardiac complaints today. He states his breathing is improved although he still notes wheezing and is not tolerating stairclimbing well. He is afebrile. Heart and respiratory rates are satisfactory. He has had episodic mild elevation of his systolic blood pressure. His in no acute distress. Pulmonary exam reveals good air exchange with mild prolongation of expiratory phase and a few musical wheezes this evening. Cardiac and abdominal exams are benign.. He has 1+ lower extremity edema. His WBC remains normal. His H&H is again mildly anemic. Electrolytes are notable for a borderline low potassium. Renal function remains normal. We are continuing to treat his AECOPD with TRC and nebs. We are continuing to observe off antibiotics. We are continuing diuresis with oral furosemide. We should replete his potassium.
[2018-02-09 08:22] LABS: ABSOLUTE BASOPHIL COUNT 0 /CUMM (0.0-0.2); ABSOLUTE EOSINOPHIL COUNT 0 /CUMM (0.0-0.7); ABSOLUTE GRANULOCYTE CT 6.7 /CUMM (1.4-6.5); ABSOLUTE LYMPH COUNT 2.6 /CUMM (1.2-3.4); ABSOLUTE MONOCYTE COUNT 0.6 /CUMM (0.10-0.60); BASOPHIL % 0.3 % (0.0-2.0); EOSINOPHIL % 0.3 % (0-5); GRANULOCYTE % 67.2 % (42.2-75.2); MEAN CORPUSCULAR HGB CONC 33.4 G/DL (33.0-37.0); MEAN PLATELET VOLUME 7.6 FL (7.4-10.4); PLATELET COUNT 284 /CUMM (130-400); RBC DISTRIBUTION WIDTH 13.2 % (11.5-14.5); RED BLOOD CELL CT 4.14 /CUMM (4.70-6.10); WHITE BLOOD CELL COUNT 9.9 /CUMM (4.8-10.8)
[2018-02-09 14:58] VITALS: BP 154/90
--- NOTE | 2018-02-09 20:32 | PN- Cardiology ---
Subjective Subjective: * Mild shortness of breath and congested cough but much improved over admission. No chest discomfort or lightheadedness. * sinus rhythm Objective Vital Signs and I&Os Vital Signs Date Time Temp Pulse Resp B/P B/P Pulse O2 O2 Flow FiO2 Mean Ox Delivery Rate 02/09 1840 93 Room Air 02/09 1458 98.3 83 20 154/90 94 Room Air 02/09 1120 130/68 02/09 1120 130/68 02/09 1120 130/68 02/09 0840 94 Room Air 02/09 0625 97.7 77 20 130/68 91 02/08 2243 97.8 98 22 138/82 94 Room Air 02/08 2023 Room Air Intake & Output 02/09 1600 02/09 0800 02/09 0000 02/08 1600 02/08 0800 02/08 0000 Intake Total Output Total Balance Patient 263 lb 263 lb Weight Weight Bed scale Measurement Method Physical Exam: General: WD/overweight male in NAD; alert and oriented x 3 Neck: no JVD Heart: RRR Lungs: no crackles with scant wheezing Extremities: 2+ leg edema Assessment/Plan Assessment/Plan * Improving from bronchitic infection off antibiotic therapy. * Hemodynamically stable without lightheadedness. Continue current dose of Lasix for lower extremity edema. Continue telemetry? Yes
[2018-02-09 23:12] VITALS: BP 138/80
[2018-02-10 05:46] VITALS: BP 160/92
--- NOTE | 2018-02-10 07:21 | PN- Housestaff ---
Bernard OLSON,[facility] 02/10/18 0721: Subjective Follow-up For: #COPD #MARCIAL #persistent LE edema Tele-Events Since Last Visit: SR 75-105 QRS .08 UT .16 - .18 Subjective: No acute events overnight. Patient states SOB improved. No other complaints. Wants to go home. Review of Systems Constitutional: Reports: no symptoms. Respiratory: Reports: short of breath. Objective Last 24 Hrs of Vital Signs/I&O Vital Signs Date Time Temp Pulse Resp B/P B/P Pulse O2 O2 Flow FiO2 Mean Ox Delivery Rate 02/10 0855 62 148/78 02/10 0855 62 148/78 02/10 0855 62 148/78 02/10 0810 91 Room Air 02/10 0546 97.6 62 18 160/92 92 Room Air 02/09 2312 98.4 84 18 138/80 92 Room Air 02/09 2038 Room Air 02/09 1840 93 Room Air 02/09 1458 98.3 83 20 154/90 94 Room Air 02/09 1120 130/68 02/09 1120 130/68 02/09 1120 130/68 Intake & Output 02/10 1600 02/10 0800 02/10 0000 Intake Total Output Total Balance Patient 261 lb Weight Physical Exam General Appearance: Alert, Oriented X3, Cooperative, No Acute Distress Cardiovascular: Regular Rate, Normal S1, Normal S2 Lungs: Clear to Auscultation, Normal Air Movement, no more wheezing Abdomen: Normal Bowel Sounds, Soft, No Tenderness Vascular: 2+ radial pulses Current Medications: Current Medications Sig/Divya Start time Last Medication Dose Route Stop Time Status Admin Acetaminophen 650 MG Q6P PRN 02/060 DCD PO Albuterol Sulfate 3 ML EVERY 4 HRS/AWAKE 02/07 1600 DCD 02/10 INH 1158 Albuterol Sulfate 2 PUF Q4 PRN 02/06 213 DCD INH Amitriptyline HCl 100 MG AT BEDTIME 02/06 2200 DCD 02/09 PO 2034 Aspirin 81 MG DAILY 02/07 1000 DCD 02/10 PO 0854 Atenolol 25 MG DAILY 02/07 1000 DCD 02/10 PO 0855 Atorvastatin Calcium 10 MG 1700 02/07 1700 DCD 02/09 PO 1751 Benzonatate 100 MG TID 02/08 1021 DCD 02/10 PO 0855 Furosemide 80 MG 7:30 AM, & 4:30 PM 02/08 1630 DCD 02/10 PO 0854 Guaifenesin 600 MG Q12 02/09 2230 DCD 02/10 PO 0854 Guaifenesin 10 ML Q4-6 PRN PRN 02/08 0200 DCD 02/08 PO 0204 Guaifenesin/ 10 ML ONCE ONE 02/10 1130 DC 02/10 Dextromethorphan PO 02/10 1131 1217 Heparin Sodium 5,000 UNIT Q8 02/06 2200 DCD 02/10 (Porcine) SC 0544 Lisinopril 20 MG DAILY 02/07 1000 DCD 02/10 PO 0855 Nifedipine 60 MG DAILY 02/07 1000 DCD 02/10 PO 0855 Olanzapine 10 MG QPM 02/06 2200 DCD 02/09 PO 2034 Omeprazole 20 MG DAILY AC 02/07 0700 DCD 02/10 PO 0545 Prednisone 60 MG DAILY 02/08 1000 DCD 02/10 PO 0854 Senna/Docusate Sodium 2 TAB DAILY PRN 02/08 1030 DCD PO Last 24 Hrs of Lab/Pete Results Last 24 Hrs of Labs/Mics: Laboratory Tests 02/10/18 0624: Anion Gap 13, Estimated GFR > 60, BUN/Creatinine Ratio 21.1, CBC w Diff NO MAN DIFF REQ, RBC 4.07 L, MCV 98.8 H, MCH 33.0 H, MCHC 33.4, RDW 13.7, MPV 7.3 L , Gran % 66.3, Lymphocytes % 26.2, Monocytes % 7.1, Eosinophils % 0.2, Basophils % 0.2, Absolute Granulocytes 6.5, Absolute Lymphocytes 2.6, Absolute Monocytes 0.7 H, Absolute Eosinophils 0, Absolute Basophils 0 Assessment/Plan Assessment: 62 year old male with past medical history of COPD not on home oxygen, [place] 2005 without any stent placement, depression, anxiety who presented to ED with chief complaint of cough for 2 weeks and cough induced syncope currently patient treated for COPD and persistent lower extremity swelling. #SOB BNP 64.8 Shortness of breath most likely COPD Chest x-ray: No acute disease, one hyperinflation Currently room air -Patient being discharged today with prednisone taper and mucinex as his wheezing has improved compared to yesterday #LE swelling Consider vascular evaluation for persistent lower extremity swelling used to be left more than right, patient had Doppler ultrasound dated 08/2017 that was negative for DVT -Continue Lasix -Monitor renal function while on Lasix -Follow cardiology recommendations - f/u echo #hx of MO -cont Atorvastatin, aspirin, atenolol #htn -Nifedipine, Lisinopril, #gerd -Omeprazole #mental health -Olanzapine, amitriptyline #DVT prophylaxis #FULL CODE Problem List: 1. Leg swelling 2. COPD exacerbation Pain Ratin Pain Location: none Pain Goal: Pain 4 or less Pain Plan: pain pathway Tomorrow's Labs & Rationales: none Yoni Horton MD 02/10/18 1712: Attending MD Review Statement Attending Statement Attending MD Statement: examined this patient, discuss w/resident/PA/FIRE CONTROL OFFICER, agreed w/resident/PA/FIRE CONTROL OFFICER, reviewed EMR data (avail), discussed with case mgmt, amended to note Attending Assessment/Plan: Mr. Menjivar was interviewed and examined. His EMR was reviewed. He states his breathing is much better. He denies fever, chills, chest pain, pleuritic pain, and palpitations. He does note an intermittent cough which is at times productive of benign-appearing sputum. He is afebrile with stable vital signs. Oxygen saturations are acceptable on room air. His lungs are clear to A&P. Cardiac exam is benign. His abdomen is soft and nontender. His lower extremity edema is improved. His WBC remains normal. His BMP again shows hypokalemia. At this time Mr. Menjivar is stable for discharge. He will be given a slow prednisone taper. A follow-up appointment will be made for the following week. His CMR was reviewed and signed.
[2018-02-10 08:26] LABS: ABSOLUTE BASOPHIL COUNT 0 /CUMM (0.0-0.2); ABSOLUTE EOSINOPHIL COUNT 0 /CUMM (0.0-0.7); ABSOLUTE GRANULOCYTE CT 6.5 /CUMM (1.4-6.5); ABSOLUTE LYMPH COUNT 2.6 /CUMM (1.2-3.4); ABSOLUTE MONOCYTE COUNT 0.7 /CUMM (0.10-0.60); BASOPHIL % 0.2 % (0.0-2.0); EOSINOPHIL % 0.2 % (0-5); GRANULOCYTE % 66.3 % (42.2-75.2); HEMATOCRIT 40.3 % (42-52); MEAN CORPUSCULAR HGB CONC 33.4 G/DL (33.0-37.0); MEAN CORPUSCULAR VOLUME 98.8 FL (80.0-94.0); MEAN PLATELET VOLUME 7.3 FL (7.4-10.4); PLATELET COUNT 283 /CUMM (130-400); RBC DISTRIBUTION WIDTH 13.7 % (11.5-14.5); RED BLOOD CELL CT 4.07 /CUMM (4.70-6.10); WHITE BLOOD CELL COUNT 9.8 /CUMM (4.8-10.8)
[2018-02-10 08:55] VITALS: BP 148/78
--- NOTE | 2018-02-10 09:55 | ECHOCARDIOGRAM REPORT ---
JOHNSON LOVE Age: 62 : 1955 Gender: M Exam Date: 02/09/2018 16:32 Exam Location: 1 [address] Ht (in): 68 Wt (lb): 263 BSA: 2.45 BP: 130 / 68 Ordering Physician: Marcio Tong MD Referring Physician: Abundio Adames MD, PhD Technologist: Abbie Anderson [facility] Room Number: 175 Indications: SHORTNESS OF BREATH Rhythm: Sinus Technical Quality: good FINDINGS Left Ventricle Normal left ventricular size with mild left ventricular hypertrophy. Normal systolic function with no obvious regional wall motion abnormalities. Normal left ventricular diastolic filling pattern for age. The ejection fraction is visually estimated at 60%. Right Ventricle The right ventricle is normal in size and function. Right Atrium The right atrium is normal in size. Left Atrium The left atrium is normal in size. The interatrial septum is intact. Mitral Valve The mitral valve is normal in structure and function. There is no mitral regurgitation. Aortic Valve Structurally normal aortic valve without significant sclerosis or stenosis. There is mild aortic regurgitation. Tricuspid Valve The tricuspid valve is normal in structure and function. There is trace tricuspid regurgitation. Pulmonary artery systolic pressure is mildly elevated to 38mmHg. Pulmonic Valve Structurally normal pulmonic valve. There is no pulmonic regurgitation. Pericardium Normal pericardium without effusion. No pleural effusion. Great Vessels Mildly enlarged ascending aorta. The aortic arch and great vessels are well seen and are normal. CONCLUSIONS 1. Normal EF of 60%. 2. Mild left ventricular hypertrophy. 3. Trace tricuspid regurgitation. 4. Mild aortic regurgitation. 5. Mild pulmonary hypertension. 6. Mildly enlarged ascending aorta. Abundio Adames M.D. (Electronically Signed) Final Date: 10 February 2018 09:54 MEASUREMENTS (Male / Female) Normal Values 2D ECHO LV Diastolic Diameter PLAX 4.6 cm 4.2 - 5.9 / 3.9 - 5.3 cm LV Systolic Diameter PLAX 2.9 cm 2.1 - 4.0 cm LV Fractional Shortening PLAX 37.0 % 25 - 46 % LV Ejection Fraction 2D Teich 66.9 % IVS Diastolic Thickness 1.4 cm LVPW Diastolic Thickness 1.4 cm LV Relative Wall Thickness 0.6 RV Internal Dim ED PLAX 3.1 cm 1.9 - 3.8 cm LVOT Diameter 2.1 cm Aortic Root Diameter 3.3 cm LA Systolic Diameter LX 3.7 cm 3.0 - 4.0 / 2.7 - 3.8 cm LA Volume 39.0 cm 18 - 58 / 22 - 52 cm Ascending Aorta Diameter 4.2 cm DOPPLER AV Peak Velocity 203.0 cm/s AV Peak Gradient 16.5 mmHg AV Mean Velocity 132.0 cm/s AV Mean Gradient 8.0 mmHg AV Velocity Time Integral 39.0 cm AI Deceleration Gallia 109.0 cm/s AI Peak Velocity 426.0 cm/s AI Pressure Half Time 1149.0 ms AI Peak Gradient 72.6 mmHg LVOT Peak Velocity 144.0 cm/s LVOT Peak Gradient 8.3 mmHg LVOT Mean Velocity 97.7 cm/s LVOT Mean Gradient 4.0 mmHg LVOT Velocity Time Integral 27.6 cm LVOT Stroke Volume 95.6 cm AV Area Cont Eq vti 2.5 cm AV Area Cont Eq pk 2.5 cm MV Peak Velocity 75.1 cm/s MV Peak Gradient 2.3 mmHg MV Mean Velocity 47.4 cm/s MV Mean Gradient 1.0 mmHg Mitral E Point Velocity 74.5 cm/s Mitral A Point Velocity 57.8 cm/s Mitral E to A Ratio 1.3 MV PHT Velocity 78.4 cm/s MV Deceleration Gallia 330.0 cm/s MV Pressure Half Time 71.3 ms MV Area PHT 3.1 cm MV Deceleration Time 261.0 ms TR Peak Velocity 286.0 cm/s TR Peak Gradient 32.7 mmHg Right Atrial Pressure 5.0 mmHg Pulmonary Artery Systolic Pressu 37.7 mmHg Right Ventricular Systolic Press 37.7 mmHg PV Peak Velocity 116.0 cm/s PV Peak Gradient 5.4 mmHg PV Mean Velocity 75.9 cm/s PV Mean Gradient 3.0 mmHg PV Velocity Time Integral 21.8 cm LV E' Lateral Velocity 16.6 cm/s Mitral E to LV E' Lateral Ratio 4.5 LV E' Septal Velocity 8.9 cm/s Mitral E to LV E' Septal Ratio 8.4
[2018-02-10] MEDS ORDERED: PREDNISONE10 M2 PO ×3 (12:32→13:24)
[2018-02-10] MEDS ORDERED: GUAIFENESIN ER600 MG PO ×3 (12:33→13:24)
--- NOTE | 2018-02-10 12:37 | Patient Discharge Instructions ---
Discharge Instructions General Discharge Information Special Instructions: Please follow up with your PCP Dr. Horton in [address] Ruiz for a pulmnology appointment in 1 week. Please follow up with your [employer] [address] Adames in 1 week. Please take your medications as perscribed. Acute Coronary Syndrome Inclusion Criteria At DC or during hospital stay patient has or had the following: ACS DIAGNOSIS No Discharge Core Measures Meds if any: Prescribed or Continued at Discharge Meds if any: NOT Prescribed or Continued at Discharge Congestive Heart Failure Inclusion Criteria At DC or during hospital stay patient has or had the following: CHF DIAGNOSIS No Discharge Core Measures Meds if any: Prescribed or Continued at Discharge Meds if any: NOT Prescribed or Continued at Discharge Cerebrovascular accident Inclusion Criteria At DC or during hospital stay patient has or had the following: CVA/TIA Diagnosis No Discharge Core Measures Meds if any: Prescribed or Continued at Discharge Meds if any: NOT Prescribed or Continued at Discharge Venous thromboembolism Inclusion Criteria VTE Diagnosis No VTE Type NONE VTE Confirmed by (Test) NONE Discharge Core Measures - Per Current guidelines, there needs to be overlap - treatment for the first 5 days of Warfarin therapy. - If discharged on Warfarin prior to 5 days of - overlap therapy, the patient will need to be - assessed for post discharge needs including - *Post discharge parental anticoagulation - *Warfarin and/or parental anticoagulation education - *Follow up date to check INR post discharge At least 5 days overlap therapy as Inpatient No Meds if any: Prescribed or Continued at Discharge Note: Overlap Therapy is Warfarin and Anticoagulant Meds if any: NOT Prescribed or Continued at Discharge
== END 2018-02-10 13:15 | DRG 140 ==
LOC: ERH 10:35 → 1NO 15:06 → ERHI 15:06 → ENRESERV 17:56 → CANRESERV 17:56 → ENTRNSPT 18:27 → EDTRNSPTSTS 18:48 → CMPTRNSPT 18:53 → ENRESERV 20:13 → EDBEDREQ 20:44 → ENTRNSPT 20:50 → EDTRNSPTSTS 20:55 → 1NO 21:19 → CMPTRNSPT 21:40 → ENPENDDIS 02-10 12:40 → 1NO 02-10 13:15
PROVIDERS: Physician Assistant; Student in an Organized Health Care Education/Training Program
DX: J44.1 Chronic obstructive pulmonary disease with (acute) exacerbation (principal); N17.9 Acute kidney failure, unspecified; R60.0 Localized edema; J44.0 Chronic obstructive pulmonary disease with (acute) lower respiratory infection; J20.9 Acute bronchitis, unspecified; I87.2 Venous insufficiency (chronic) (peripheral); R55 Syncope and collapse; I25.2 Old myocardial infarction; F32.9 Major depressive disorder, single episode, unspecified; F41.9 Anxiety disorder, unspecified; Z79.82 Long term (current) use of aspirin; Z79.51 Long term (current) use of inhaled steroids; I12.9 Hypertensive chronic kidney disease with stage 1 through stage 4 chronic kidney disease, or unspecified chronic kidney disease
CPT/HCPCS: 1NP; 36415; 36592; 71046; 82436; 87804; 87804-59; 93005; 93010; 93306; J1644; J2920; J2930; J3490

== ENCOUNTER 2018-06-02 12:15 | Emergency (ER) | payer OTHER ==
[~2018-06-02] VITALS: Ht 172.7 cm; Wt 121.1 kg
[~2018-06-02 12:15] MED LIST: AMITRIPTYLINE100 M2 PO; ASPIRIN81 M4 PO; ATENOLOL25 M1 PO; ENALAPRIL MALEA10 M1 PO; ENALAPRIL MALEA20 M1 PO; FUROSEMIDE80 M1 PO; GUAIFENESIN ER600 MG PO; NIFEDIPINE ER60 M2 PO; OLANZAPINE10 M1 PO; PANTOPRAZOLE SO20 M1 PO; POTASSIUM CHLO20 ME2 PO; PREDNISONE10 M2 PO; PROAIR HFA8.5 GM; SIMVASTATIN20 M2 PO
[2018-06-02 12:27] VITALS: BP 109/73
--- NOTE | 2018-06-02 12:41 | ED UPPER/LOWER EXTREMITY COMPL ---
See Addendum History of Present Illness General Chief Complaint: General Adult Stated Complaint: ?ABCESS TO R ELBOW Source: patient Exam Limitations: no limitations Vital Signs & Intake/Output Vital Signs & Intake/Output ED Intake and Output 06/03 0000 06/02 1200 Intake Total Output Total Balance Patient 267 lb Weight Weight Reported by Patient Measurement Method Allergies Coded Allergies: No Known Allergies (02/06/18) Reconcile Medications Albuterol Sulfate (Proair Hfa) (Unknown Strength) HFA.AER.AD (Unknown Dose) PRN WHEEZING (Reported) Amitriptyline HCl 100 MG TABLET 100 MG PO DAILY CARDIAC (Reported) Aspirin (Aspirin*) 81 MG TAB.CHEW 1 TAB PO DAILY HEART HEALTH (Reported) Atenolol 25 MG TABLET 1 TAB PO DAILY HTN (Reported) Cephalexin (Keflex) 500 MG CAPSULE 1 CAP PO TID BURSITIS Enalapril Maleate 20 MG TABLET 20 MG PO DAILY HTN (Reported) Furosemide 80 MG TABLET 80 MG PO BID FLUID RETENTION (Reported) Guaifenesin (Guaifenesin ER) 600 MG TAB.ER.12H 1 TAB PO BID MUCUS Meloxicam (Mobic) 15 MG TABLET 1 TAB PO DAILY PRN PAIN Nifedipine (Nifedipine ER) 60 MG TAB.ER.24 60 MG PO DAILY HTN (Reported) Olanzapine 10 MG TABLET 10 MG PO QPM PYSCOTIC DISORDER (Reported) Pantoprazole Sodium 20 MG TABLET.DR 20 MG PO DAILY GERD (Reported) Potassium Chloride 20 MEQ TAB.ER.PRT 20 MG PO DAILY REPLACEMENT (Reported) Prednisone 10 MG TABLET 1 TAB PO DAILY COPD DATE TAB 02/11-02/13 5 02/14-02/16 4 02/17-02/19 3 02/20-02/22 2 02/23-02/25 1 02/26-02/28 0.5 Simvastatin (Simvastatin*) 20 MG TABLET 20 MG PO DAILY CHOL (Reported) Triage Note: PT TO ED C/O RIGHT ELBOW PAIN/SWELLING/REDNESS. ? ABSCESS. NOTICED YESTERDAY. DENIES FEVERS, AFEBRILE. DENIES INJURY OR BUG BITE. Triage Nurses Notes Reviewed? yes Onset: Gradual Duration: day(s): Timing: recent history Severity: moderate Pain/Injury Location: Right: Elbow. HPI: 63yo male presents to ED complaining of swelling and pain to right posterior elbow for the past 2 days. Patient states he noticed increasing redness, swelling, pain to right elbow. He went to an urgent care today and they referred him here to the emergency department. Patient has no history of similar swelling in the past. There is no trauma or inciting prior to onset of these symptoms. Patient denies fevers, chills, abdominal pain, vomiting. (Odalys Beckwith) Past History Travel History Traveled to [place] past 21 day No Medical History Any Pertinent Medical History? see below for history Neurological: NONE EENT: NONE Cardiovascular: myocardial infarction Respiratory: COPD Gastrointestinal: NONE Hepatic: NONE Renal: NONE Musculoskeletal: NONE Psychiatric: NONE Endocrine: NONE Blood Disorders: NONE Cancer(s): NONE KAYAKING INSTRUCTOR/Reproductive: NONE History of MRSA: No History of VRE: No History of CDIFF: No Influenza Vaccine: 07/25/17 Surgical History Surgical History: appendectomy Psychosocial History Who do you live with Spouse What is your primary language Hungarian Tobacco Use: Quit >30 days ago ETOH Use: denies use Illicit Drug Use: denies illicit drug use Family History Hx Contributory? No (Odalys Beckwith) Review of Systems Review of Systems Constitutional: Reports: no symptoms. EENTM: Reports: no symptoms. Respiratory: Reports: no symptoms. Cardiovascular: Reports: no symptoms. Gastrointestinal/Abdominal: Reports: no symptoms. Genitourinary: Reports: no symptoms. Musculoskeletal: Reports: see HPI. Skin: Reports: see HPI. Neurological/Psychological: Reports: no symptoms. Hematologic/Endocrine: Reports: no symptoms. Immunological: Reports: no symptoms. All Other Systems: Reviewed and Negative (Odalys Beckwith) Physical Exam Physical Exam General Appearance: well developed/nourished, no apparent distress, alert, awake Head: atraumatic, normal appearance Eyes: Bilateral: normal appearance. Ears, Nose, Throat: hearing grossly normal Neck: normal inspection, supple, full range of motion Cardiovascular/Respiratory: no respiratory distress Back: normal inspection, normal range of motion Shoulder Left: normal range of motion, normal inspection Shoulder Right: normal range of motion, normal inspection Elbow Left: normal range of motion, normal inspection Elbow Right: swelling and tenderness to posterior elbow with erythema, warmth Hand Left: normal inspection, normal range of motion Hand Right: normal inspection, normal range of motion Neurologic/Tendon: normal sensation, normal motor functions, normal tendon functions Skin: erythema of posterior elbow as described above (Odalys Beckwith) Progress Differential Diagnosis: cellulitis, tendon injury, bursitis, gout Plan of Care: Orders Procedure Date/time Status SYNOVIAL FLUID CELL COUNT 06/02 1306 Complete CULTURE,BODY FLUID 06/02 1240 Active Laboratory Tests 06/02/18 1306: Lymphocytes 2, % Normal PMNs 95, Misc Hematology Test 2, Fluid WBC 4590 H, Fld Total RBCs Counted 21995 H Microbiology 06/02 1306 BODY FLUID: Body Fluid Culture - RES 06/02 1306 BODY FLUID: Gram Stain - RES Patient's symptoms are consistent with bursitis. Fluid was drained from right elbow and sent to the lab. Given surrounding erythema and tenderness patient was started on antibiotics and anti-inflammatory medication. He was instructed to follow-up with his primary care doctor later this week. He was instructed to return if she the emergency department if symptoms worsen or if he could not make a follow-up with his primary doctor. The patient agrees with the plan of care. Dr. Javier agrees with this plan. Comments: Procedure note: Right elbow was cleaned with Betadine. 25-gauge needle used to aspirate 3 mL serosanguinous fluid from elbow. Patient tolerated procedure well. (Odalys Beckwith) Departure Departure Disposition: HOME OR SELF CARE Condition: Stable Clinical Impression Primary Impression: Olecranon bursitis Qualifiers: Laterality: right Qualified Code: M70.21 - Olecranon bursitis, right elbow Referrals: Sol OLSON,Yoni Bond (PCP/Family) Additional Instructions: Begin antibiotics and anti inflammatory medications as prescribed. Follow up with your primary care doctor later this week. Return with worsening symptoms or concerns including worsening swelling, redness, pain. Please note that there might be incidental findings in your evaluation that are unrelated to the current emergency department visit. Please notify your primary care doctor about this emergency department visit in order to obtain and review all of the testing performed so that these incidental findings can be monitored as needed. If you had an x-ray performed, please understand that some fractures may not be seen on the initial set of x-rays. If your symptoms persist you might need a repeat set of x-rays to check for such a fracture. If you had a laceration evaluated, please understand that foreign bodies such as glass or wood may not be visible to the naked eye or on plain x-rays. If the wound becomes red, swollen, increasingly more painful or if there is any drainage from the wound, please have it reevaluated by a physician for the possibility of a retained foreign body. If you're unable to follow up as outlined in the discharge instructions please return to the emergency department. Thank you for choosing the [facility] Emergency Department for your care. It was a pleasure to serve you today. Departure Forms: Customer Survey General Discharge Information Prescriptions: Current Visit Scripts Cephalexin (Keflex) 1 CAP PO TID #21 CAP Meloxicam (Mobic) 1 TAB PO DAILY PRN PAIN #15 TAB (Alanna HAHN,Odalys Tejada) PA/ENVIRONMENTAL ADVISOR Co-Sign Statement Statement: ED Attending supervision documentation- x I saw and evaluated the patient. I have also reviewed all the pertinent lab results and diagnostic results. I agree with the findings and the plan of care as documented in the PA's/ENVIRONMENTAL ADVISOR's documentation. [] I have reviewed the ED Record and agree with the PA's/ENVIRONMENTAL ADVISOR's documentation. [] Additions or exceptions (if any) to the PAs/ENVIRONMENTAL ADVISOR's note and plan are summarized below: [] (Concepcion OLSON,Ramez)
[2018-06-02] MEDS ORDERED: MOBIC15 M1 PO (13:12)
[2018-06-02] MEDS ORDERED: KEFLEX500 M1 PO (13:12)
== END 2018-06-02 13:19 ==
LOC: ERH 12:15
DX: M70.21 Olecranon bursitis, right elbow (principal)
CPT/HCPCS: 87075; 87184; 87147